=== PATIENT | female | born 1975 | race Caucasian/White ===

== ENCOUNTER 2022-10-07 14:51 | Emergency (ER) | payer OTHER ==
[~2022-10-07] VITALS: Ht 165.1 cm; Wt 90.7 kg
[2022-10-07] MEDS ORDERED: SYNTHROID88 MCG PO (15:35)
== END 2022-10-07 19:38 | disposition home or self-care (01) ==
LOC: ER 14:51
DX: K59.01 Slow transit constipation (principal)